=== PATIENT | female | born 1945 | race Hispanic/Latino ===

== ENCOUNTER → 2018-11-25 | Outpatient (CLI) | payer MEDICARE | LOC: RAD 14:17 | DX: Z12.31 Encounter for screening mammogram for malignant neoplasm of breast (principal) ==

== ENCOUNTER 2018-12-06 12:22 | Outpatient (CLI) | payer MEDICARE | END 2018-12-06 12:23 | disposition home or self-care (01) | LOC: RAD 12:22 ==

== ENCOUNTER 2018-12-14 19:15 | Emergency (ER) | payer MEDICARE ==
[2018-12-14 19:29] VITALS: TEMP 97.9
[2018-12-14] MEDS ORDERED: TDAP Vaccine 0.5 mL Syr IM ONE (19:43)
--- NOTE | 2018-12-14 19:43 | ED PDOC ---
Arrival/HPI <Carlyle Finch - Last Filed: 12/14/18 21:36> - General Historian: Patient - History of Present Illness Narrative History of Present Illness (Text): 12/14/18 19:52 73yr old female with pmh of Arthritis presents via EMS s/p mechanical fall complaining of right shoulder and nose pain and bleeding. Patient reports she tripped and fell and landed on her right shoulder and nose. pt states her nose was bleeding but has stopped. pt states that she was able to walk after the incident. denies loc. pt denies headaches, dizziness or weakness. no cp or sob. no fever/chills. pt states she is having trouble moving her right shoulder. pt states she is able to move it fully with assistance, but due to the pain she is unable to lift it without assistance. pt states she did take tylenol prior to the fall as part of her normal routine. Patient is not up to date on her tetanus shot. Time/Duration: Prior to Arrival Symptom Onset: Sudden Symptom Course: Unchanged Activities at Onset: Light Context: Street <Mary Grace Craft - Last Filed: 12/14/18 22:13> - General Chief Complaint: Trauma Time Seen by Provider: 12/14/18 19:30 Past Medical History - Provider Review Nursing Documentation Reviewed: Yes - Travel History Have you recently traveled outside [place] w/in the past 3 mons?: No - Infectious Disease Hx of Infectious Diseases: None - Tetanus Immunization Tetanus Immunization: Unknown - Cardiac Hx Hypertension: Yes - Pulmonary Hx Respiratory Disorders: No - Endocrine/Metabolic Hx Diabetes Mellitus Type 2: Yes Hx Hypothyroidism: Yes - Hematological/Oncological Hx Blood Transfusions: No Hx Blood Transfusion Reaction: No - Psychiatric Hx Substance Use: No - Anesthesia Hx Anesthesia Reactions: No Hx Malignant Hyperthermia: No <Mary Grace Craft - Last Filed: 12/14/18 22:13> Family/Social History - Physician Review Nursing Documentation Reviewed: Yes Family/Social History: Unknown Family HX Smoking Status: Never Smoked Hx Alcohol Use: No Hx Substance Use: No <Mary Grace Craft - Last Filed: 12/14/18 22:13> Allergies/Home Meds <Carlyle Finch - Last Filed: 12/14/18 21:36> <Mary Grace Craft - Last Filed: 12/14/18 22:13> Allergies/Adverse Reactions: Allergies azithromycin Allergy (Verified 12/14/18 19:28) ITCHING Penicillins Allergy (Verified 12/14/18 19:28) ITCHING erythromycin Allergy (Uncoded 12/14/18 19:28) ITCHING Home Medications: Home Meds Medication Instructions Recorded Confirmed Aspirin 81 mg PO DAILY 05/02/14 05/02/14 Atorvastatin [Lipitor] 20 mg PO DAILY 05/02/14 05/02/14 Fenofibrate,Micronized 200 mg PO DAILY 05/02/14 05/02/14 [Fenofibrate] Levothyroxine Sodium [Synthroid] 0.025 mg PO DAILY 05/02/14 05/02/14 Metformin Hydrochloride [Metformin] 500 mg PO BID 05/02/14 05/02/14 Telmisartan/Hydrochlorothiazid 80 mg PO DAILY 05/02/14 05/02/14 [Micardis Hct 12.5 mg-80 mg] glyBURIDE [Micronase] 2.5 mg PO DAILY 05/02/14 05/02/14 Review of Systems - Physician Review All systems were reviewed & negative as marked: Yes - Review of Systems Constitutional: Normal. absent: Fatigue, Fevers Eyes: absent: Vision Changes, Photophobia, Eye Pain ENT: Epistaxis, Other (nose pain). absent: Sore Throat Respiratory: absent: SOB, Cough Cardiovascular: absent: Chest Pain, Palpitations Gastrointestinal: absent: Abdominal Pain, Constipation, Diarrhea, Nausea, Vomiting Genitourinary Female: absent: Dysuria, Frequency, Hematuria, Urine Output Changes Musculoskeletal: Arthralgias (right shoulder pain). absent: Back Pain, Neck Pain Skin: Other (abrasions, hands and knees). absent: Laceration, Abscess, Cellulitis Neurological: absent: Headache, Dizziness, Focal Weakness, Gait Changes, Speech Changes, Disequilibrium Psychiatric: Normal. absent: Anxiety, Depression <Mary Grace Craft - Last Filed: 12/14/18 22:13> Physical Exam Vital Signs Temp Pulse Resp BP Pulse Ox 12/14/18 20:58 95 H 16 158/74 H 97 12/14/18 19:22 97.9 F 91 H 20 167/66 H 98 <Carlyle Finch - Last Filed: 12/14/18 21:36> Vital Signs Reviewed: Yes Vital Signs Temp Pulse Resp BP Pulse Ox 12/14/18 19:22 97.9 F 91 H 20 167/66 H 98 Temperature: Afebrile Blood Pressure: Hypertensive Pulse: Regular Respiratory Rate: Normal Appearance: Positive for: Well-Appearing, Non-Toxic, Comfortable Pain Distress: Mild Mental Status: Positive for: Alert and Oriented X 3 Finger Stick Blood Glucose: 281 - Systems Exam Head: Present: Normocephalic, Tenderness (Nasal bridge tenderness with edema) Pupils: Present: PERRL Extroacular Muscles: Present: EOMI Conjunctiva: Present: Normal Ears: Present: Normal, NORMAL TM Mouth: Present: Moist Mucous Membranes, Normal Lips, Normal Tounge, Normal Teeth. No: Drooling, Trismus Pharnyx: Present: Normal Nose (External): Present: Abrasion (small abrasion noted to the right side of the nose Glabella just medial to the eyebrow. ), Other (+ swelling) Nose (Internal): Present: Other (dried blood noted in right nostril.). No: No Active Bleeding, Engorged, Septal Deviation, Septal Hematoma Neck: Present: Normal Range of Motion Respiratory/Chest: Present: Clear to Auscultation, Good Air Exchange. No: Respiratory Distress, Accessory Muscle Use Cardiovascular: Present: Regular Rate and Rhythm, Normal S1, S2. No: Murmurs Abdomen: Present: Normal Bowel Sounds, Other (No ecchymosis, no edema, no erythema; ). No: Tenderness, Distention, Rebound, Guarding Back: Present: Normal Inspection. No: Midline Tenderness, Paraspinal Tenderness Upper Extremity: Present: NORMAL PULSES, Tenderness (Right shoulder tenderness anteriorly , limited abduction. full passive rom of shoulder. decreased abduction on active rom.), Neurovascularly Intact, Capillary Refill < 2s, Other (abrasion to thenar eminence on right hand. abrasion to right second and 3rd fin gers along dorsal aspect of distal phalanx. abrasion noted to left thumb at distal tip, ). No: Edema, Normal ROM Lower Extremity: Present: Normal ROM, Other (Abrasions anteriorly to knees b/l). No: Edema, Tenderness Neurological: Present: GCS=15, Speech Normal, Motor Func Grossly Intact, Normal Sensory Function, Gait Normal Skin: Present: Warm, Normal Color, Abrasion. No: Rashes Psychiatric: Present: Alert, Oriented x 3 <Mary Grace Craft - Last Filed: 12/14/18 22:13> Medical Decision Making - RAD Interpretation Radiology Orders: 12/14/18 19:41 HEAD W/O CONTRAST [CT] Stat MAXILLOFACIAL W/O CONTRAST [CT] Stat SHOULDER RIGHT [RAD] Stat 12/14/18 19:42 CHEST TWO VIEWS (PA/LAT) [RAD] Stat - Medication Orders Current Medication Orders: Discontinued Medications Tetanus/Reduced Diphtheria/Acell Pertussis (Boostrix Vaccine Inj) 0.5 ml IM .ONCE ONE Stop: 12/14/18 19:44 Last Admin: 12/14/18 19:51 Dose: 0.5 ml Immunization Registry Document 12/14/18 19:51 KV (Rec: 12/14/18 19:51 KV [id number]) [facility]-Date provided 11/25/18 <Carlyle Finch - Last Filed: 12/14/18 21:36> ED Course and Treatment: 12/14/18 19:50 Impression: 73yr old female presents via EMS complaining of right shoulder and nose pain s/p mechanial fall. Plan: -- Maxillofacial w/o contrast CT -- CT head w/o contrast -- Chest X-ray -- Boostrix Vaccine Inj -- Right Shouler X Ray -- Reassess and disposition Prior Visits: Notes and results from previous visits were reviewed. Progress Notes: patients glucose was 281. pt states she just ate prior to trip and fall. CT Head: BRAIN Chronic periventricular and subcortical microvascular disease is seen. VENTRICLES: There is generalized parenchymal atrophy noted as demonstrated by symmetrical dilatation of ventricles and sulci. ORBITS: The orbits are unremarkable. SINUSES AND MASTOIDS: The paranasal sinuses and mastoid air cells are clear. BONES: No fracture. SOFT TISSUES: Unremarkable. MISCELLANEOUS: No acute intracranial pathology. IMPRESSION: 1. There is generalized parenchymal atrophy noted as demonstrated by symmetrical dilatation of ventricles and sulci. 2. Chronic periventricular and subcortical microvascular disease is seen. 3. No acute intracranial pathology. Electronically signed on Dec 14, 2018 8:23:39 PM EDT by: Clarke Ferguson M.D., SILVANO Certified By [employer] Fellowship Trained MRI and CT Specialist CT Maxillofacial: BONES: Minimally displaced bilateral nasal bone fractures. No additional fractures. SOFT TISSUES: The soft tissues are unremarkable. SINUSES: Bilateral chronic ethmoid sinusitis. ORBITS: The orbits are normal. No retrobulbar hematoma or mass. IMPRESSION: 1. Minimally displaced bilateral nasal bone fractures. 2. Bilateral chronic ethmoid sinusitis. Electronically signed on Dec 14, 2018 8:25:12 PM EDT by: Clarke Ferguson M.D., SILVANO Certified By [facility] Fellowship Trained MRI and CT Specialist cxr wnl xray right shoulder; wnl All wounds were cleaned and irrigated. Bacitracin and dressing applied. Patient reassessment: Patient is feeling better after medications. Vital signs are stable. Patient denies headache dizziness or weakness. No chest pain or shortness of breath. Patient denies abdominal pain. Patient states "the Tylenol must have kicked in because I am now able to move my arm unassisted." All results were discussed in depth with the patient. Patient was advised of bilateral nasal bone fractures and the need for follow-up with the ENT specialist. Patient was advised to follow-up with her primary care physician tomorrow and to follow-up with the orthopedist for her right shoulder pain. Patient states she would prefer to see Dr. Saldana. Patient was advised immediate return if any concerning symptoms develop. Patient verbalizes understanding of discharge instructions and need for immediate followup. All aspects of this case were discussed the attending of record. Impression: Mechanical fall, nasal bone fractures, abrasions hand Tylenol every 4 hours as needed for pain Increase fluids Apply ice to the affected areas. Keep wounds clean and dry, apply bacitracin twice daily Follow-up with the primary care physician tomorrow Follow-up with the ENT specialist within the next 2 days Follow-up with the orthopedist within the next 2 days Return immediately if signs of infection develop: High fevers, increasing pain, increasing redness, increasing swelling, purulent discharge Return immediately if any other concerning symptoms develop Reassessment Condition: Re-examined, Improved <Mary Grace Craft - Last Filed: 12/14/18 22:13> - PA / CHIEF DRAFTER / Resident Statement / has reviewed & agrees with the documentation as recorded. RENY has examined the patient and agrees with the treatment plan. <Carlyle Finch - Last Filed: 04/03/19 21:36> - Scribe Statement The provider has reviewed the documentation as recorded by the Scribe Emmanuel Trimble All medical record entries made by the Scribe were at my direction and personally dictated by me. I have reviewed the chart and agree that the record accurately reflects my personal performance of the history, physical exam, medical decision making, and the department course for this patient. I have also personally directed, reviewed, and agree with the discharge instructions and disposition. <Mary Grace Craft - Last Filed: 12/14/18 22:13> Disposition/Present on Arrival <Carlyle Finch - Last Filed: 12/14/18 21:36> - Present on Arrival Any Indicators Present on Arrival: No History of DVT/PE: No History of Uncontrolled Diabetes: No Urinary Catheter: No History of Decub. Ulcer: No History Surgical Site Infection Following: None - Disposition Have Diagnosis and Disposition been Completed?: Yes Disposition Time: 21:30 Patient Plan: Discharge <Mary Grace Craft - Last Filed: 12/14/18 22:13> - Disposition Diagnosis: Nasal bone fractures, Abrasion hand, Shoulder pain Disposition: HOME/ ROUTINE Patient Problems: Current Active Problems Problem Status Onset Abrasion hand Acute Nasal bone fractures Acute Shoulder pain Acute Condition: GOOD Discharge Instructions (ExitCare): Shoulder Pain (DC), Nose Fracture (DC), Skin Abrasions (DC) Additional Instructions: Tylenol every 4 hours as needed for pain Increase fluids Apply ice to the affected areas. Keep wounds clean and dry, apply bacitracin twice daily Follow-up with the primary care physician tomorrow Follow-up with the ENT specialist within the next 2 days Follow-up with the orthopedist within the next 2 days Return immediately if signs of infection develop: High fevers, increasing pain, increasing redness, increasing swelling, purulent discharge Return immediately if any other concerning symptoms develop Referrals: Hi Tovar MD [Family Provider] - Follow up with primary Nitin Taylor MD [Staff Provider] - Follow up with primary Janes Quintero DO [Staff Provider] - Follow up with primary Forms: Text A Cab ([place]ian)
[2018-12-14 20:58] VITALS: BP 158/74; PULSE 95; RESP 16; O2SAT 97
[2018-12-14] MEDS ORDERED: Bacitracin 500 Units/gm Oint Foilpak UD ONE (21:36)
[2018-12-14] MEDS ORDERED: Bacitracin 500 Units/gm Oint Foilpak UD TOP ONE (21:44)
--- NOTE | 2018-12-15 08:01 | CT ---
Date of service: 12/14/2018 PROCEDURE: CT HEAD WITHOUT CONTRAST. HISTORY: head injury/fall COMPARISON: None available. TECHNIQUE: Axial computed tomography images were obtained through the head/brain without intravenous contrast. Radiation dose: Total exam DLP = 816.62 mGy-cm. This CT exam was performed using one or more of the following dose reduction techniques: Automated exposure control, adjustment of the mA and/or kV according to patient size, and/or use of iterative reconstruction technique. FINDINGS: HEMORRHAGE: No intracranial hemorrhage. BRAIN: No mass effect or edema. Mild atrophy VENTRICLES: Unremarkable. No hydrocephalus. CALVARIUM: Unremarkable. PARANASAL SINUSES: Unremarkable as visualized. No significant inflammatory changes. MASTOID AIR CELLS: Unremarkable as visualized. No inflammatory changes. OTHER FINDINGS: The report concurs with the preliminary [facility] report IMPRESSION: No acute intracranial finding
--- NOTE | 2018-12-15 08:03 | CT ---
Date of service: 12/14/2018 PROCEDURE: CT MAXILLOFACIAL BONES WITHOUT CONTRAST HISTORY: fall, facial pain/nasal pain COMPARISON: None available. TECHNIQUE: Contiguous axial CT images of the maxillofacial bones were obtained. Coronal and sagittal reformats were generated. Radiation dose: Total exam DLP = 783.5 mGy-cm. This CT exam was performed using one or more of the following dose reduction techniques: Automated exposure control, adjustment of the mA and/or kV according to patient size, and/or use of iterative reconstruction technique. FINDINGS: NASAL BONES: Minimally displaced bilateral nasal bone fractures. ORBITS: Unremarkable. PARANASAL SINUSES/ MASTOIDS: Minimal mucosal thickening of the ethmoid sinuses MAXILLA: Unremarkable. MANDIBLE/ TEMPOROMANDIBULAR JOINTS: Unremarkable. SKULL BASE: Unremarkable. TEMPORAL BONES: Middle ears and mastoid grossly unremarkable. OTHER FINDINGS: The report concurs with the preliminary [facility] report IMPRESSION: Minimally displaced bilateral nasal bone fractures.
--- NOTE | 2018-12-15 08:18 | RAD ---
Date of service: 12/14/2018 HISTORY: fall COMPARISON: 01/20/2016 TECHNIQUE: Chest PA and lateral views FINDINGS: LUNGS: No active pulmonary disease. PLEURA: No significant pleural effusion identified. No pneumothorax apparent. CARDIOVASCULAR: Aortic calcification Normal cardiac size. No pulmonary vascular congestion. OSSEOUS STRUCTURES: No significant abnormalities. VISUALIZED UPPER ABDOMEN: Normal. OTHER FINDINGS: None. IMPRESSION: No active disease.
--- NOTE | 2018-12-15 08:18 | RAD ---
Date of service: 12/14/2018 PROCEDURE: Radiographs of the Right Shoulder HISTORY: fall, shoulder pain COMPARISON: No prior. TECHNIQUE: 3 views obtained. FINDINGS: BONES: Normal. No fracture. JOINTS: Normal. Glenohumeral and acromioclavicular joints preserved. No osteoarthritis. SOFT TISSUES: Normal. OTHER FINDINGS: None. IMPRESSION: Normal radiographs of the right shoulder.
--- NOTE | 2018-12-15 19:02 | CARD ---
APPROVED REPORT Date of service: 12/14/2018 EKG Measurement Heart [id number] <Conclusion> Normal sinus rhythm with sinus arrhythmia Nonspecific ST abnormality Abnormal ECG
== END 2018-12-14 22:15 | disposition home or self-care (01) ==
LOC: ED 19:15
DX: S02.2XXA Fracture of nasal bones, initial encounter for closed fracture (principal); S60.511A Abrasion of right hand, initial encounter; W01.0XXA Fall on same level from slipping, tripping and stumbling without subsequent striking against object, initial encounter; M25.511 Pain in right shoulder; Z23 Encounter for immunization

== ENCOUNTER 2018-12-30 10:22 | Outpatient (CLI) | payer MEDICARE | END 2018-12-30 10:23 | disposition home or self-care (01) | LOC: RAD 10:22 ==